=== PATIENT | female | born 1960 | race Caucasian/White ===

== ENCOUNTER → 2016-06-06 | Outpatient (CLI) | payer OTHER ==
--- NOTE | 2016-06-06 17:12 | US ---
Left Breast Ultrasound Indication: Pain outer left breast. Negative mammograms. Technique: The outer left breast was scanned with a high-resolution linear transducer by the sonograp and me. Correlation made with mammograms and targeted physical exam. Comparison: Diagnostic mammograms performed earlier today and screening mammograms dated April 09, August 2013, and May 2012 Findings: Sonography reveals normal bands of fibroglandular tissue throughout the outer left breast. No cyst, mass, or architectural distortion. Impression: Normal left breast ultrasound. No cyst or evidence of malignancy. BI-RADS 1: Negative mammogram. Recommendation: Resume routine annual screening in May 2017 unless otherwise clinically indicate d. The negative results and recommendations were discussed with the patient at time of study completion.
--- NOTE | 2016-06-06 17:18 | MA ---
Bilateral digital diagnostic Mammogram With Tomosynthesis and iCAD 06/06/2016 Indication: Left breast pain Technique: Standard digital CC projections were obtained. Digital breast tomosynthesis was performed in the MLO projection with reconstruction at 1.0 mm slice thickness. Composite MLO views were recons tructed. This examination was processed by the iCAD computer-aided detection system. Comparison: March 2015, August 2013, December 2009, and March 2006 Breast density: Type C. Findings: CAD was reviewed. No suspicious microcalcifications, mass, or architectural distortion. Impression: Negative mammograms. BI-RADS 2: Benign Finding. Recommendation: Proceed with left breast ultrasound as order to optimally characterize pain. [facility] will send a result letter to the patient. Negative mammography should not preclude additional workup of a clinically suspicious finding. The patient's information is entered into a reminder system with a target due date for her next mammo gram.
== END ==
LOC: FIMAGING 11:23
PROVIDERS: ATTEND Internal Medicine
DX: Z12.39 Encounter for other screening for malignant neoplasm of breast (principal); N64.4 Mastodynia
CPT/HCPCS: G0204; G0279

== ENCOUNTER → 2017-03-15 | Outpatient (CLI) | payer OTHER ==
[~2017-03-15] MED LIST: IOPAMIDOL (ISOVUE-300) 100 ML BTL ONE
== END ==
LOC: CIMAGING 07:57
PROVIDERS: ATTEND Internal Medicine
DX: M47.812 Spondylosis without myelopathy or radiculopathy, cervical region (principal); M46.92 Unspecified inflammatory spondylopathy, cervical region; M43.22 Fusion of spine, cervical region
CPT/HCPCS: 70491-PO; Q9967

== ENCOUNTER → 2018-02-18 | Outpatient (CLI) | payer OTHER | LOC: FIMAGING 13:45 | PROVIDERS: ATTEND Internal Medicine | DX: R60.0 Localized edema (principal) ==

== ENCOUNTER → 2018-03-13 | Outpatient (CLI) | payer OTHER | LOC: CIMAGING 11:05 | PROVIDERS: ATTEND Surgery | DX: R22.1 Localized swelling, mass and lump, neck (principal); M48.02 Spinal stenosis, cervical region | CPT/HCPCS: 70491-PO; 71260-PO; Q9967 ==